=== PATIENT | female | born 1955 | race Caucasian/White ===

== ENCOUNTER 2020-11-19 11:48 | Inpatient (IN) | payer BC, SELFPAY ==
[~2020-11-19] VITALS: Ht 167.6 cm; Wt 80.7 kg
[2020-11-19 11:50] VITALS: BP_SYST 135
[2020-11-19 12:54] LABS: BASOPHILS # (AUTO) 0.3 K/uL (0.0-0.2); BASOPHILS % (AUTO) 3.7 % (0.0-2.0); EOSINOPHILS % (AUTO) 0.6 % (0.0-4.0); HEMATOCRIT 40.8 % (36-48); HEMOGLOBIN 14.4 g/dL (12.0-16.0); LYMPHOCYTES # (AUTO) 0.9 K/uL (1.0-5.5); LYMPHOCYTES % (AUTO) 11.6 % (20.5-51.5); MEAN CORPUSCULAR HEMOGLOBIN 30 pg (27-31); MEAN CORPUSCULAR HGB CONC 35 % (32-36); MEAN CORPUSCULAR VOLUME 85 fL (79.0-98.0); MONOCYTES # (AUTO) 0.4 K/uL (0.0-1.0); MONOCYTES % (AUTO) 5.3 % (1.7-9.3); NEUTROPHILS # (AUTO) 5.9 K/uL (1.8-7.7); NEUTROPHILS % (AUTO) 78.8 % (40.0-70.0); PLATELET COUNT (AUTO) 202 K/uL (130-430); RED CELL DISTRIBUTION WIDTH 13.5 % (9.0-15.0); WHITE BLOOD COUNT (AUTO) 7.5 K/uL (4.8-10.8)
[2020-11-19] MEDS ORDERED: DEXAMETHASONE SOD PHOSPHATE 10 MG/ML VIAL IVP ONE (13:00)
[2020-11-19] MEDS ORDERED: NACL 0.9% 1,000 ML IV ONE (13:00)
[2020-11-19] MEDS ORDERED: cefTRIAXone 1 GM IVPB PREMIX 50 ML IV ONE (13:00)
[2020-11-19 13:08] LABS: CALCIUM 9.2 mg/dL (8.4-11.0); CREATININE 0.99 mg/dL (0.55-1.30)
[2020-11-19 13:14] LABS: INR 0.9 (0.8-1.2); PROTHROMBIN TIME 9.2 SECS (9.5-12.5)
[2020-11-19 13:23] LABS: ALBUMIN 2.8 g/dL (3.4-4.8); TOTAL BILIRUBIN 0.7 mg/dL (0.0-1.0)
[2020-11-19 13:25] LABS: POTASSIUM 2.6 mmol/L (3.5-5.1)
[2020-11-19] MEDS ORDERED: KCL 40 mEq in D5W 1000 mL 1,000 ML IV ONE (14:15)
[2020-11-19] MEDS ORDERED: POTASSIUM CHLORIDE 20 MEQ/PKT PACKET PO ONE (14:15)
[2020-11-19] MEDS: KCL 20 mEq in NS 1000 mL 1,000 ML IV SCH (14:30)
[2020-11-19] MEDS ORDERED: HCT25 PO (14:34)
[2020-11-19] MEDS ORDERED: LEVO150T PO (14:34)
[2020-11-19] MEDS ORDERED: ACETAMINOPHEN 325 MG TABLET PO PRN (19:00)
[2020-11-19] MEDS: DEXAMETHASONE SOD PHOSPHATE 10 MG/ML VIAL IVP SCH (20:00)
[2020-11-19] MEDS: cefTRIAXone 1 GM in D5W 50 ML IV SCH (20:19)
[2020-11-19] MEDS: AZITHROMYCIN 500 MG in NS 250 ML IV SCH (20:22)
[2020-11-19] MEDS: ASCORBIC ACID 500 MG TABLET PO SCH (20:22)
[2020-11-19] MEDS: ENOXAPARIN SODIUM 40 MG/0.4 ML SYRINGE SUBCUT SCH (20:23)
[2020-11-19] MEDS ORDERED: ONDANSETRON HCL 4 MG/2 ML VIAL ONE (21:32)
[2020-11-19] MEDS: ONDANSETRON HCL 4 MG/2 ML VIAL IVP PRN (22:02)
[2020-11-19] MEDS: LORazepam 1 MG TABLET PO PRN (22:04)
[2020-11-20] MEDS: KCL 20 mEq in NS 1000 mL 1,000 ML IV SCH ×2 (00:47→17:51)
[2020-11-20] MEDS ORDERED: ENOXAPARIN SODIUM 40 MG/0.4 ML SYRINGE ONE (10:00)
[2020-11-20] MEDS: LEVOTHYROXINE SODIUM 0.1 MG TABLET PO SCH (11:01)
[2020-11-20] MEDS: ASCORBIC ACID 500 MG TABLET PO SCH ×2 (11:01→21:12)
[2020-11-20] MEDS: CHOLECALCIFEROL (VITAMIN D3) 5,000 UNIT TABLET PO SCH (11:02)
[2020-11-20] MEDS: ENOXAPARIN SODIUM 40 MG/0.4 ML SYRINGE SUBCUT SCH ×2 (11:05→21:14)
[2020-11-20 14:59] LABS: BASOPHILS % (AUTO) 0.2 % (0.0-2.0); EOSINOPHILS # (AUTO) 0.1 K/uL (0.0-0.4); EOSINOPHILS % (AUTO) 0.5 % (0.0-4.0); HEMATOCRIT 38.6 % (36-48); HEMOGLOBIN 13.5 g/dL (12.0-16.0); LYMPHOCYTES # (AUTO) 1.3 K/uL (1.0-5.5); LYMPHOCYTES % (AUTO) 12.6 % (20.5-51.5); MEAN CORPUSCULAR HEMOGLOBIN 30 pg (27-31); MEAN CORPUSCULAR HGB CONC 35 % (32-36); MEAN CORPUSCULAR VOLUME 86 fL (79.0-98.0); MONOCYTES # (AUTO) 0.4 K/uL (0.0-1.0); MONOCYTES % (AUTO) 4.1 % (1.7-9.3); NEUTROPHILS # (AUTO) 8.6 K/uL (1.8-7.7); NEUTROPHILS % (AUTO) 82.6 % (40.0-70.0); PLATELET COUNT (AUTO) 243 K/uL (130-430); RED BLOOD CELL COUNT(AUTO) 4.52 MIL/uL (4.2-6.2); RED CELL DISTRIBUTION WIDTH 13.6 % (9.0-15.0); WHITE BLOOD COUNT (AUTO) 10.5 K/uL (4.8-10.8)
[2020-11-20 15:33] LABS: ALBUMIN 2.5 g/dL (3.4-4.8); CALCIUM 9.2 mg/dL (8.4-11.0); CREATININE 0.74 mg/dL (0.55-1.30); POTASSIUM 3.7 mmol/L (3.5-5.1); TOTAL BILIRUBIN 0.6 mg/dL (0.0-1.0)
[2020-11-20 16:10] VITALS: BP_SYST 145
[2020-11-20 16:20] VITALS: BP_SYST 145
[2020-11-20 20:00] VITALS: BP_SYST 159
[2020-11-20] MEDS: cefTRIAXone 1 GM in D5W 50 ML IV SCH (21:00)
[2020-11-20] MEDS: DEXAMETHASONE SOD PHOSPHATE 10 MG/ML VIAL IVP SCH (21:12)
[2020-11-20] MEDS: AZITHROMYCIN 500 MG in NS 250 ML IV SCH (21:13)
[2020-11-20 21:16] VITALS: BP_SYST 145
[2020-11-21 02:00] VITALS: BP_SYST 146
[2020-11-21] MEDS: LORazepam 1 MG TABLET PO PRN (02:36)
[2020-11-21] MEDS: LEVOTHYROXINE SODIUM 0.1 MG TABLET PO SCH (08:09)
[2020-11-21 08:15] VITALS: BP_SYST 143
[2020-11-21 08:45] LABS: BASOPHILS % (AUTO) 0.1 % (0.0-2.0); HEMATOCRIT 37.8 % (36-48); HEMOGLOBIN 13.3 g/dL (12.0-16.0); LYMPHOCYTES # (AUTO) 0.8 K/uL (1.0-5.5); LYMPHOCYTES % (AUTO) 8.6 % (20.5-51.5); MEAN CORPUSCULAR HEMOGLOBIN 30 pg (27-31); MEAN CORPUSCULAR HGB CONC 35 % (32-36); MEAN CORPUSCULAR VOLUME 86 fL (79.0-98.0); MONOCYTES # (AUTO) 0.2 K/uL (0.0-1.0); MONOCYTES % (AUTO) 2.4 % (1.7-9.3); NEUTROPHILS # (AUTO) 8.3 K/uL (1.8-7.7); NEUTROPHILS % (AUTO) 88.9 % (40.0-70.0); PLATELET COUNT (AUTO) 288 K/uL (130-430); RED BLOOD CELL COUNT(AUTO) 4.42 MIL/uL (4.2-6.2); RED CELL DISTRIBUTION WIDTH 13.1 % (9.0-15.0); WHITE BLOOD COUNT (AUTO) 9.3 K/uL (4.8-10.8)
[2020-11-21] MEDS ORDERED: BUDESONIDE 0.5 MG/2 ML AMPUL.NEB INH SCH (09:00)
[2020-11-21 09:08] LABS: ALBUMIN 2.4 g/dL (3.4-4.8); CREATININE 0.81 mg/dL (0.55-1.30); TOTAL BILIRUBIN 0.5 mg/dL (0.0-1.0)
[2020-11-21 10:36] LABS: C-REACTIVE PROTEIN QUANT 18.1 mg/dL (0-0.5)
[2020-11-21] MEDS: ENOXAPARIN SODIUM 40 MG/0.4 ML SYRINGE SUBCUT SCH ×2 (11:00→21:00)
[2020-11-21] MEDS: ASCORBIC ACID 500 MG TABLET PO SCH ×2 (11:00→21:00)
[2020-11-21] MEDS: CHOLECALCIFEROL (VITAMIN D3) 5,000 UNIT TABLET PO SCH (11:00)
[2020-11-21 16:28] VITALS: BP_SYST 152
[2020-11-21] MEDS: KCL 20 mEq in NS 1000 mL 1,000 ML IV SCH (17:23)
[2020-11-21 20:00] VITALS: BP_SYST 146
[2020-11-21] MEDS: DEXAMETHASONE SOD PHOSPHATE 10 MG/ML VIAL IVP SCH (20:30)
[2020-11-21] MEDS: cefTRIAXone 1 GM in D5W 50 ML IV SCH (20:30)
[2020-11-21] MEDS: AZITHROMYCIN 500 MG in NS 250 ML IV SCH (21:00)
[2020-11-22 00:21] VITALS: BP_SYST 141
[2020-11-22] MEDS: LEVOTHYROXINE SODIUM 0.1 MG TABLET PO SCH (06:05)
[2020-11-22 08:00] VITALS: BP_SYST 152
[2020-11-22 09:05] LABS: BASOPHILS % (AUTO) 0.1 % (0.0-2.0); HEMATOCRIT 38.7 % (36-48); HEMOGLOBIN 13.5 g/dL (12.0-16.0); LYMPHOCYTES # (AUTO) 0.8 K/uL (1.0-5.5); LYMPHOCYTES % (AUTO) 6.6 % (20.5-51.5); MEAN CORPUSCULAR HEMOGLOBIN 30 pg (27-31); MEAN CORPUSCULAR HGB CONC 35 % (32-36); MEAN CORPUSCULAR VOLUME 86 fL (79.0-98.0); MONOCYTES # (AUTO) 0.3 K/uL (0.0-1.0); MONOCYTES % (AUTO) 2.7 % (1.7-9.3); NEUTROPHILS # (AUTO) 11.3 K/uL (1.8-7.7); NEUTROPHILS % (AUTO) 90.6 % (40.0-70.0); PLATELET COUNT (AUTO) 326 K/uL (130-430); RED CELL DISTRIBUTION WIDTH 13.7 % (9.0-15.0); WHITE BLOOD COUNT (AUTO) 12.5 K/uL (4.8-10.8)
[2020-11-22] MEDS: CHOLECALCIFEROL (VITAMIN D3) 5,000 UNIT TABLET PO SCH (09:11)
[2020-11-22] MEDS: ASCORBIC ACID 500 MG TABLET PO SCH ×2 (09:11→21:00)
[2020-11-22] MEDS: ENOXAPARIN SODIUM 40 MG/0.4 ML SYRINGE SUBCUT SCH ×2 (09:14→22:15)
[2020-11-22 09:44] LABS: ALBUMIN 2.3 g/dL (3.4-4.8); CALCIUM 9.1 mg/dL (8.4-11.0); CREATININE 0.76 mg/dL (0.55-1.30); TOTAL BILIRUBIN 0.5 mg/dL (0.0-1.0)
[2020-11-22 10:12] LABS: C-REACTIVE PROTEIN QUANT 17.8 mg/dL (0-0.5)
[2020-11-22 11:18] VITALS: BP_SYST 145
[2020-11-22] MEDS: KCL 20 mEq in NS 1000 mL 1,000 ML IV SCH (11:27)
[2020-11-22] MEDS: ALBUTEROL MDI INHALATION 8 GM INH INH PRN (13:40)
[2020-11-22 15:37] VITALS: BP_SYST 142
[2020-11-22] MEDS: LORazepam 1 MG TABLET PO PRN (17:36)
[2020-11-22 20:00] VITALS: BP_SYST 140
[2020-11-22] MEDS: AZITHROMYCIN 500 MG in NS 250 ML IV SCH (21:00)
[2020-11-22] MEDS: DEXAMETHASONE SOD PHOSPHATE 10 MG/ML VIAL IVP SCH (21:00)
[2020-11-22] MEDS: cefTRIAXone 1 GM in D5W 50 ML IV SCH (23:00)
[2020-11-23] VITALS: BP_SYST 142
[2020-11-23] MEDS: LEVOTHYROXINE SODIUM 0.1 MG TABLET PO SCH (06:52)
[2020-11-23 08:00] VITALS: BP_SYST 147
[2020-11-23] MEDS: CHOLECALCIFEROL (VITAMIN D3) 5,000 UNIT TABLET PO SCH (09:41)
[2020-11-23] MEDS: ASCORBIC ACID 500 MG TABLET PO SCH ×2 (09:41→21:30)
[2020-11-23] MEDS: ENOXAPARIN SODIUM 40 MG/0.4 ML SYRINGE SUBCUT SCH ×2 (09:41→21:30)
[2020-11-23 11:33] LABS: BASOPHILS % (AUTO) 0.2 % (0.0-2.0); HEMATOCRIT 39.7 % (36-48); HEMOGLOBIN 13.6 g/dL (12.0-16.0); LYMPHOCYTES # (AUTO) 0.7 K/uL (1.0-5.5); LYMPHOCYTES % (AUTO) 5.5 % (20.5-51.5); MEAN CORPUSCULAR HEMOGLOBIN 30 pg (27-31); MEAN CORPUSCULAR HGB CONC 34 % (32-36); MEAN CORPUSCULAR VOLUME 86 fL (79.0-98.0); MONOCYTES # (AUTO) 0.2 K/uL (0.0-1.0); MONOCYTES % (AUTO) 1.5 % (1.7-9.3); NEUTROPHILS # (AUTO) 12.5 K/uL (1.8-7.7); NEUTROPHILS % (AUTO) 92.8 % (40.0-70.0); PLATELET COUNT (AUTO) 362 K/uL (130-430); RED BLOOD CELL COUNT(AUTO) 4.61 MIL/uL (4.2-6.2); RED CELL DISTRIBUTION WIDTH 13.6 % (9.0-15.0); WHITE BLOOD COUNT (AUTO) 13.4 K/uL (4.8-10.8)
[2020-11-23 11:48] LABS: ALBUMIN 2.2 g/dL (3.4-4.8); CALCIUM 8.9 mg/dL (8.4-11.0); CREATININE 0.98 mg/dL (0.55-1.30); POTASSIUM 4.2 mmol/L (3.5-5.1); TOTAL BILIRUBIN 0.6 mg/dL (0.0-1.0)
[2020-11-23] MEDS: AZITHROMYCIN 500 MG in D5W 250 ML IV SCH (12:19)
[2020-11-23 15:23] VITALS: BP_SYST 146
[2020-11-23] MEDS: KCL 20 mEq in NS 1000 mL 1,000 ML IV SCH (17:39)
[2020-11-23 17:45] VITALS: BP_SYST 155
[2020-11-23 20:00] VITALS: BP_SYST 124
[2020-11-23] MEDS: LORazepam 1 MG TABLET PO PRN (20:45)
[2020-11-23] MEDS: cefTRIAXone 1 GM in D5W 50 ML IV SCH (21:30)
[2020-11-23] MEDS: DEXAMETHASONE SOD PHOSPHATE 10 MG/ML VIAL IVP SCH (21:30)
[2020-11-24] VITALS: BP_SYST 115
[2020-11-24] MEDS: ONDANSETRON HCL 4 MG/2 ML VIAL IVP PRN
[2020-11-24] MEDS: LEVOTHYROXINE SODIUM 0.1 MG TABLET PO SCH (06:30)
[2020-11-24 07:34] LABS: BASOPHILS # (AUTO) 0.1 K/uL (0.0-0.2); BASOPHILS % (AUTO) 0.3 % (0.0-2.0); HEMATOCRIT 37.4 % (36-48); HEMOGLOBIN 12.9 g/dL (12.0-16.0); LYMPHOCYTES # (AUTO) 0.6 K/uL (1.0-5.5); LYMPHOCYTES % (AUTO) 3.5 % (20.5-51.5); MEAN CORPUSCULAR HEMOGLOBIN 30 pg (27-31); MEAN CORPUSCULAR HGB CONC 35 % (32-36); MEAN CORPUSCULAR VOLUME 86 fL (79.0-98.0); MONOCYTES # (AUTO) 0.3 K/uL (0.0-1.0); MONOCYTES % (AUTO) 2.1 % (1.7-9.3); NEUTROPHILS # (AUTO) 15.3 K/uL (1.8-7.7); NEUTROPHILS % (AUTO) 94.1 % (40.0-70.0); PLATELET COUNT (AUTO) 339 K/uL (130-430); RED BLOOD CELL COUNT(AUTO) 4.35 MIL/uL (4.2-6.2); RED CELL DISTRIBUTION WIDTH 14.1 % (9.0-15.0); WHITE BLOOD COUNT (AUTO) 16.3 K/uL (4.8-10.8)
[2020-11-24 07:52] LABS: BILIRUBIN,DIRECT 0.2 mg/dL (0.0-0.3); CALCIUM 8.7 mg/dL (8.4-11.0); CREATININE 0.86 mg/dL (0.55-1.30); POTASSIUM 4.3 mmol/L (3.5-5.1); TOTAL BILIRUBIN 0.4 mg/dL (0.0-1.0)
[2020-11-24] MEDS: ASCORBIC ACID 500 MG TABLET PO SCH ×2 (09:35→21:50)
[2020-11-24] MEDS: CHOLECALCIFEROL (VITAMIN D3) 5,000 UNIT TABLET PO SCH (09:35)
[2020-11-24] MEDS: ENOXAPARIN SODIUM 40 MG/0.4 ML SYRINGE SUBCUT SCH ×2 (09:36→21:00)
[2020-11-24 11:11] VITALS: BP_SYST 131
[2020-11-24] MEDS: AZITHROMYCIN 500 MG in D5W 250 ML IV SCH (12:02)
[2020-11-24 12:52] VITALS: BP_SYST 131
[2020-11-24 16:16] VITALS: BP_SYST 129
[2020-11-24] MEDS: LORazepam 1 MG TABLET PO PRN (19:08)
[2020-11-24 20:00] VITALS: BP_SYST 132
[2020-11-24] MEDS: KCL 20 mEq in NS 1000 mL 1,000 ML IV SCH (20:00)
[2020-11-24] MEDS: DEXAMETHASONE SOD PHOSPHATE 10 MG/ML VIAL IVP SCH (21:50)
[2020-11-24] MEDS ORDERED: cefTRIAXone 1 GM IVPB PREMIX 50 ML IV ONE (22:27)
[2020-11-24] MEDS: cefTRIAXone 1 GM in D5W 50 ML IV SCH (22:45)
[2020-11-25] VITALS (8 sets, daily range): BP systolic 86–140
[2020-11-25] MEDS: LEVOTHYROXINE SODIUM 0.1 MG TABLET PO SCH (06:03)
[2020-11-25 08:06] LABS: BILIRUBIN,DIRECT 0.2 mg/dL (0.0-0.3); TOTAL BILIRUBIN 0.3 mg/dL (0.0-1.0)
[2020-11-25] MEDS: ENOXAPARIN SODIUM 40 MG/0.4 ML SYRINGE SUBCUT SCH ×2 (09:00→22:10)
[2020-11-25] MEDS: ASCORBIC ACID 500 MG TABLET PO SCH ×2 (09:00→22:10)
[2020-11-25] MEDS: CHOLECALCIFEROL (VITAMIN D3) 5,000 UNIT TABLET PO SCH (09:00)
[2020-11-25 10:24] LABS: C-REACTIVE PROTEIN QUANT 19.2 mg/dL (0-0.5)
[2020-11-25] MEDS ORDERED: PROPOFOL DRIP 100 ML IV ONE (18:14)
[2020-11-25] MEDS ORDERED: NOREPINEPHRINE BITARTRATE 4 MG in NS 246 ML IV PRN (20:30)
[2020-11-25] MEDS ORDERED: LEVOTHYROXINE SODIUM 0.1 MG TABLET ONE (21:30)
[2020-11-25] MEDS: cefTRIAXone 1 GM in D5W 50 ML IV SCH (22:10)
[2020-11-25] MEDS: DEXAMETHASONE SOD PHOSPHATE 10 MG/ML VIAL IVP SCH (22:10)
[2020-11-25] MEDS: KCL 20 mEq in NS 1000 mL 1,000 ML IV SCH (22:10)
[2020-11-26] VITALS (23 sets, daily range): BP systolic 83–131
[2020-11-26] MEDS ORDERED: LORazepam 2 MG/ML VIAL ONE (00:57)
[2020-11-26] MEDS: LORazepam 2 MG/ML VIAL IVP PRN (01:17)
[2020-11-26] MEDS: PROPOFOL DRIP 100 ML IV PRN ×6 (01:18→18:13)
[2020-11-26 05:23] LABS: BASOPHILS % (AUTO) 0.2 % (0.0-2.0); EOSINOPHILS % (AUTO) 0.1 % (0.0-4.0); HEMATOCRIT 34.7 % (36-48); HEMOGLOBIN 11.7 g/dL (12.0-16.0); LYMPHOCYTES # (AUTO) 0.7 K/uL (1.0-5.5); LYMPHOCYTES % (AUTO) 5.6 % (20.5-51.5); MEAN CORPUSCULAR HEMOGLOBIN 30 pg (27-31); MEAN CORPUSCULAR HGB CONC 34 % (32-36); MEAN CORPUSCULAR VOLUME 87 fL (79.0-98.0); MONOCYTES # (AUTO) 0.3 K/uL (0.0-1.0); NEUTROPHILS # (AUTO) 11.5 K/uL (1.8-7.7); NEUTROPHILS % (AUTO) 92.1 % (40.0-70.0); PLATELET COUNT (AUTO) 219 K/uL (130-430); RED BLOOD CELL COUNT(AUTO) 3.98 MIL/uL (4.2-6.2); RED CELL DISTRIBUTION WIDTH 14.3 % (9.0-15.0); WHITE BLOOD COUNT (AUTO) 12.5 K/uL (4.8-10.8)
[2020-11-26 05:38] LABS: CALCIUM 8.6 mg/dL (8.4-11.0); CREATININE 0.96 mg/dL (0.55-1.30); POTASSIUM 4.7 mmol/L (3.5-5.1)
[2020-11-26] MEDS: LEVOTHYROXINE SODIUM 0.1 MG TABLET PO SCH (05:47)
[2020-11-26 05:54] LABS: C-REACTIVE PROTEIN QUANT 20.7 mg/dL (0-0.5)
[2020-11-26] MEDS: ASCORBIC ACID 500 MG TABLET PO SCH ×2 (09:26→23:03)
[2020-11-26] MEDS: CHOLECALCIFEROL (VITAMIN D3) 5,000 UNIT TABLET PO SCH (09:26)
[2020-11-26] MEDS: ENOXAPARIN SODIUM 40 MG/0.4 ML SYRINGE SUBCUT SCH ×2 (09:27→21:00)
[2020-11-26] MEDS: PIPERACILLIN/TAZO 4.5GM/DEX-IS 100 ML IV SCH ×2 (13:09→23:05)
[2020-11-26] MEDS ORDERED: PIPERACILLIN/TAZO 4.5GM/DEX-IS 100 ML IV SCH (14:00)
[2020-11-26] MEDS: KCL 20 mEq in NS 1000 mL 1,000 ML IV SCH (17:54)
[2020-11-26 22:20] LABS: INR 1.1 (0.8-1.2); PROTHROMBIN TIME 10.9 SECS (9.5-12.5)
[2020-11-26] MEDS: DEXAMETHASONE SOD PHOSPHATE 10 MG/ML VIAL IVP SCH (23:03)
[2020-11-27] VITALS (27 sets, daily range): BP systolic 87–136
[2020-11-27] MEDS: PROPOFOL DRIP 100 ML IV PRN ×5 (02:56→20:30)
[2020-11-27] MEDS: LORazepam 2 MG/ML VIAL IVP PRN (06:00)
[2020-11-27] MEDS: PIPERACILLIN/TAZO 4.5GM/DEX-IS 100 ML IV SCH ×3 (06:00→21:00)
[2020-11-27 07:12] LABS: BASOPHILS # (AUTO) 0.1 K/uL (0.0-0.2); BASOPHILS % (AUTO) 0.6 % (0.0-2.0); EOSINOPHILS % (AUTO) 0.1 % (0.0-4.0); HEMATOCRIT 38.7 % (36-48); LYMPHOCYTES # (AUTO) 0.9 K/uL (1.0-5.5); MEAN CORPUSCULAR HEMOGLOBIN 30 pg (27-31); MEAN CORPUSCULAR HGB CONC 34 % (32-36); MEAN CORPUSCULAR VOLUME 88 fL (79.0-98.0); MONOCYTES # (AUTO) 0.3 K/uL (0.0-1.0); MONOCYTES % (AUTO) 1.5 % (1.7-9.3); NEUTROPHILS # (AUTO) 17.4 K/uL (1.8-7.7); NEUTROPHILS % (AUTO) 92.8 % (40.0-70.0); PLATELET COUNT (AUTO) 269 K/uL (130-430); RED CELL DISTRIBUTION WIDTH 14.3 % (9.0-15.0); WHITE BLOOD COUNT (AUTO) 18.8 K/uL (4.8-10.8)
[2020-11-27 07:20] LABS: CALCIUM 8.9 mg/dL (8.4-11.0); CREATININE 0.98 mg/dL (0.55-1.30); POTASSIUM 4.5 mmol/L (3.5-5.1)
[2020-11-27 07:29] LABS: ALBUMIN 1.7 g/dL (3.4-4.8); BILIRUBIN,DIRECT 0.4 mg/dL (0.0-0.3); TOTAL BILIRUBIN 0.5 mg/dL (0.0-1.0)
[2020-11-27] MEDS: LEVOTHYROXINE SODIUM 0.1 MG TABLET PO SCH (07:46)
[2020-11-27] MEDS: ASCORBIC ACID 500 MG TABLET PO SCH ×2 (08:45→21:00)
[2020-11-27] MEDS: CHOLECALCIFEROL (VITAMIN D3) 5,000 UNIT TABLET PO SCH (08:45)
[2020-11-27] MEDS: ENOXAPARIN SODIUM 40 MG/0.4 ML SYRINGE SUBCUT SCH ×2 (08:46→21:57)
[2020-11-27 10:33] LABS: C-REACTIVE PROTEIN QUANT 20.9 mg/dL (0-0.5)
[2020-11-27] MEDS: KCL 20 mEq in NS 1000 mL 1,000 ML IV SCH (18:05)
[2020-11-27] MEDS ORDERED: VANCOMYCIN HCL 1 GM/NS PREMIX 250 ML IV ONE (20:15)
[2020-11-27] MEDS: DEXAMETHASONE SOD PHOSPHATE 10 MG/ML VIAL IVP SCH (20:59)
[2020-11-27] MEDS: FLUCONAZOLE 100 mg/ NS 50 ML IV SCH (21:00)
[2020-11-27] MEDS ORDERED: VANCOMYCIN HCL 1000 MG/VIAL IV ONE (22:53)
[2020-11-27] MEDS ORDERED: FLUCONAZOLE 200 mg/ NS 100 ML IV ONE (22:57)
[2020-11-28] VITALS (27 sets, daily range): BP systolic 100–128
[2020-11-28] MEDS: PROPOFOL DRIP 100 ML IV PRN ×4 (01:04→22:00)
[2020-11-28] MEDS: PIPERACILLIN/TAZO 4.5GM/DEX-IS 100 ML IV SCH ×3 (05:43→22:00)
[2020-11-28 05:47] LABS: BASOPHILS # (AUTO) 0.1 K/uL (0.0-0.2); BASOPHILS % (AUTO) 0.4 % (0.0-2.0); EOSINOPHILS % (AUTO) 0.1 % (0.0-4.0); HEMATOCRIT 36.4 % (36-48); HEMOGLOBIN 12.3 g/dL (12.0-16.0); LYMPHOCYTES # (AUTO) 0.8 K/uL (1.0-5.5); LYMPHOCYTES % (AUTO) 5.2 % (20.5-51.5); MEAN CORPUSCULAR HEMOGLOBIN 30 pg (27-31); MEAN CORPUSCULAR HGB CONC 34 % (32-36); MEAN CORPUSCULAR VOLUME 88 fL (79.0-98.0); MONOCYTES # (AUTO) 0.4 K/uL (0.0-1.0); MONOCYTES % (AUTO) 2.5 % (1.7-9.3); NEUTROPHILS # (AUTO) 14.3 K/uL (1.8-7.7); NEUTROPHILS % (AUTO) 91.8 % (40.0-70.0); PLATELET COUNT (AUTO) 215 K/uL (130-430); RED BLOOD CELL COUNT(AUTO) 4.14 MIL/uL (4.2-6.2); RED CELL DISTRIBUTION WIDTH 13.9 % (9.0-15.0); WHITE BLOOD COUNT (AUTO) 15.6 K/uL (4.8-10.8)
[2020-11-28] MEDS: LEVOTHYROXINE SODIUM 0.1 MG TABLET PO SCH (07:18)
[2020-11-28 07:38] LABS: ALBUMIN 1.5 g/dL (3.4-4.8); BILIRUBIN,DIRECT 0.2 mg/dL (0.0-0.3); CALCIUM 8.5 mg/dL (8.4-11.0); CREATININE 1.01 mg/dL (0.55-1.30); THYROID STIMULATING HORMONE 4.22 uIu/mL (0.36-3.74); TOTAL BILIRUBIN 0.5 mg/dL (0.0-1.0)
[2020-11-28 08:35] LABS: C-REACTIVE PROTEIN QUANT 6.9 mg/dL (0-0.5)
[2020-11-28] MEDS: ASCORBIC ACID 500 MG TABLET PO SCH ×2 (08:59→20:48)
[2020-11-28] MEDS: CHOLECALCIFEROL (VITAMIN D3) 5,000 UNIT TABLET PO SCH (08:59)
[2020-11-28] MEDS: ENOXAPARIN SODIUM 40 MG/0.4 ML SYRINGE SUBCUT SCH ×2 (10:23→21:35)
[2020-11-28] MEDS: KCL 20 mEq in NS 1000 mL 1,000 ML IV SCH (17:13)
[2020-11-28] MEDS: FLUCONAZOLE 100 mg/ NS 50 ML IV SCH (20:48)
[2020-11-28] MEDS: DEXAMETHASONE SOD PHOSPHATE 10 MG/ML VIAL IVP SCH (20:48)
[2020-11-29] VITALS (28 sets, daily range): BP systolic 105–136
[2020-11-29] MEDS: PROPOFOL DRIP 100 ML IV PRN ×3 (02:15→22:04)
[2020-11-29] MEDS: PIPERACILLIN/TAZO 4.5GM/DEX-IS 100 ML IV SCH ×3 (05:19→21:57)
[2020-11-29] MEDS: LEVOTHYROXINE SODIUM 0.1 MG TABLET PO SCH (07:00)
[2020-11-29] MEDS: ENOXAPARIN SODIUM 40 MG/0.4 ML SYRINGE SUBCUT SCH ×2 (09:00→22:03)
[2020-11-29 10:08] LABS: ALBUMIN 1.6 g/dL (3.4-4.8); BILIRUBIN,DIRECT 0.2 mg/dL (0.0-0.3); CALCIUM 8.9 mg/dL (8.4-11.0); CREATININE 0.91 mg/dL (0.55-1.30); POTASSIUM 4.4 mmol/L (3.5-5.1); TOTAL BILIRUBIN 0.5 mg/dL (0.0-1.0)
[2020-11-29] MEDS: CHOLECALCIFEROL (VITAMIN D3) 5,000 UNIT TABLET PO SCH (10:11)
[2020-11-29] MEDS: ASCORBIC ACID 500 MG TABLET PO SCH ×2 (10:11→21:17)
[2020-11-29 10:31] LABS: BASOPHILS % (AUTO) 0.3 % (0.0-2.0); EOSINOPHILS # (AUTO) 0.3 K/uL (0.0-0.4); HEMATOCRIT 36.1 % (36-48); HEMOGLOBIN 12.6 g/dL (12.0-16.0); LYMPHOCYTES # (AUTO) 0.5 K/uL (1.0-5.5); LYMPHOCYTES % (AUTO) 3.8 % (20.5-51.5); MEAN CORPUSCULAR HEMOGLOBIN 31 pg (27-31); MEAN CORPUSCULAR HGB CONC 35 % (32-36); MEAN CORPUSCULAR VOLUME 88 fL (79.0-98.0); MONOCYTES # (AUTO) 0.2 K/uL (0.0-1.0); MONOCYTES % (AUTO) 1.1 % (1.7-9.3); NEUTROPHILS # (AUTO) 13.1 K/uL (1.8-7.7); NEUTROPHILS % (AUTO) 92.8 % (40.0-70.0); PLATELET COUNT (AUTO) 194 K/uL (130-430); RED BLOOD CELL COUNT(AUTO) 4.08 MIL/uL (4.2-6.2); RED CELL DISTRIBUTION WIDTH 13.9 % (9.0-15.0); WHITE BLOOD COUNT (AUTO) 14.1 K/uL (4.8-10.8)
[2020-11-29 10:48] LABS: C-REACTIVE PROTEIN QUANT 2.7 mg/dL (0-0.5)
[2020-11-29] MEDS: KCL 20 mEq in NS 1000 mL 1,000 ML IV SCH (18:01)
[2020-11-29] MEDS: DEXAMETHASONE SOD PHOSPHATE 10 MG/ML VIAL IVP SCH (20:00)
[2020-11-29] MEDS: FLUCONAZOLE 100 mg/ NS 50 ML IV SCH (21:17)
[2020-11-30] VITALS (29 sets, daily range): BP systolic 86–154
[2020-11-30] MEDS: PROPOFOL DRIP 100 ML IV PRN ×5 (02:37→23:32)
[2020-11-30] MEDS: LEVOTHYROXINE SODIUM 0.1 MG TABLET PO SCH (06:49)
[2020-11-30] MEDS: PIPERACILLIN/TAZO 4.5GM/DEX-IS 100 ML IV SCH ×3 (06:49→22:39)
[2020-11-30 08:50] LABS: POTASSIUM 4.5 mmol/L (3.5-5.1)
[2020-11-30 08:51] LABS: ALBUMIN 1.7 g/dL (3.4-4.8); BILIRUBIN,DIRECT 0.1 mg/dL (0.0-0.3); CALCIUM 8.9 mg/dL (8.4-11.0); CREATININE 0.77 mg/dL (0.55-1.30); TOTAL BILIRUBIN 0.5 mg/dL (0.0-1.0)
[2020-11-30] MEDS: ASCORBIC ACID 500 MG TABLET PO SCH ×2 (10:10→20:03)
[2020-11-30] MEDS: CHOLECALCIFEROL (VITAMIN D3) 5,000 UNIT TABLET PO SCH (10:10)
[2020-11-30] MEDS: ENOXAPARIN SODIUM 40 MG/0.4 ML SYRINGE SUBCUT SCH ×2 (11:30→20:03)
[2020-11-30] MEDS: KCL 20 mEq in NS 1000 mL 1,000 ML IV SCH (18:13)
[2020-11-30] MEDS: FLUCONAZOLE 100 mg/ NS 50 ML IV SCH (20:03)
[2020-11-30] MEDS: DEXAMETHASONE SOD PHOSPHATE 10 MG/ML VIAL IVP SCH (20:03)
[2020-12-01] VITALS (29 sets, daily range): BP systolic 88–143
[2020-12-01] MEDS: PROPOFOL DRIP 100 ML IV PRN ×2 (05:16→21:46)
[2020-12-01] MEDS: PIPERACILLIN/TAZO 4.5GM/DEX-IS 100 ML IV SCH ×3 (05:35→22:00)
[2020-12-01] MEDS: LEVOTHYROXINE SODIUM 0.1 MG TABLET PO SCH (07:09)
[2020-12-01 07:46] LABS: ALBUMIN 1.6 g/dL (3.4-4.8); BILIRUBIN,DIRECT 0.1 mg/dL (0.0-0.3)
[2020-12-01] MEDS: ASCORBIC ACID 500 MG TABLET PO SCH ×2 (08:01→21:47)
[2020-12-01] MEDS: CHOLECALCIFEROL (VITAMIN D3) 5,000 UNIT TABLET PO SCH (08:01)
[2020-12-01] MEDS: ENOXAPARIN SODIUM 40 MG/0.4 ML SYRINGE SUBCUT SCH ×2 (08:46→21:46)
[2020-12-01] MEDS: LORazepam 2 MG/ML VIAL IVP PRN ×2 (12:57→16:32)
[2020-12-01] MEDS: KCL 20 mEq in NS 1000 mL 1,000 ML IV SCH (18:29)
[2020-12-01] MEDS: DEXAMETHASONE SOD PHOSPHATE 10 MG/ML VIAL IVP SCH (20:00)
[2020-12-01] MEDS: FLUCONAZOLE 100 mg/ NS 50 ML IV SCH (21:47)
[2020-12-02] VITALS (33 sets, daily range): BP systolic 91–144
[2020-12-02] MEDS: PROPOFOL DRIP 100 ML IV PRN ×5 (04:53→22:22)
[2020-12-02] MEDS: PIPERACILLIN/TAZO 4.5GM/DEX-IS 100 ML IV SCH ×3 (05:50→22:14)
[2020-12-02] MEDS: LEVOTHYROXINE SODIUM 0.1 MG TABLET PO SCH (06:41)
[2020-12-02 06:48] LABS: BASOPHILS # (AUTO) 0.1 K/uL (0.0-0.2); BASOPHILS % (AUTO) 0.4 % (0.0-2.0); EOSINOPHILS # (AUTO) 0.2 K/uL (0.0-0.4); EOSINOPHILS % (AUTO) 0.9 % (0.0-4.0); HEMATOCRIT 35.1 % (36-48); HEMOGLOBIN 11.8 g/dL (12.0-16.0); LYMPHOCYTES # (AUTO) 0.8 K/uL (1.0-5.5); MEAN CORPUSCULAR HEMOGLOBIN 30 pg (27-31); MEAN CORPUSCULAR HGB CONC 34 % (32-36); MEAN CORPUSCULAR VOLUME 89 fL (79.0-98.0); MONOCYTES # (AUTO) 0.2 K/uL (0.0-1.0); MONOCYTES % (AUTO) 1.3 % (1.7-9.3); NEUTROPHILS # (AUTO) 15.4 K/uL (1.8-7.7); NEUTROPHILS % (AUTO) 92.4 % (40.0-70.0); PLATELET COUNT (AUTO) 175 K/uL (130-430); RED BLOOD CELL COUNT(AUTO) 3.95 MIL/uL (4.2-6.2); RED CELL DISTRIBUTION WIDTH 13.9 % (9.0-15.0); WHITE BLOOD COUNT (AUTO) 16.7 K/uL (4.8-10.8)
[2020-12-02 07:39] LABS: CALCIUM 8.2 mg/dL (8.4-11.0); POTASSIUM 4.5 mmol/L (3.5-5.1)
[2020-12-02] MEDS: CHOLECALCIFEROL (VITAMIN D3) 5,000 UNIT TABLET PO SCH (09:03)
[2020-12-02] MEDS: ASCORBIC ACID 500 MG TABLET PO SCH ×2 (09:03→20:24)
[2020-12-02] MEDS: ENOXAPARIN SODIUM 40 MG/0.4 ML SYRINGE SUBCUT SCH ×2 (09:31→20:27)
[2020-12-02] MEDS ORDERED: INSULIN GLARGINE 100 UNITS/ML 10 ML VIAL SUBCUT SCH (09:45)
[2020-12-02] MEDS: KCL 20 mEq in NS 1000 mL 1,000 ML IV SCH (18:04)
[2020-12-02] MEDS: FLUCONAZOLE 100 mg/ NS 50 ML IV SCH (20:23)
[2020-12-02] MEDS: DEXAMETHASONE SOD PHOSPHATE 10 MG/ML VIAL IVP SCH (20:24)
[2020-12-03] VITALS (28 sets, daily range): BP systolic 86–120
[2020-12-03] MEDS: PROPOFOL DRIP 100 ML IV PRN ×6 (01:24→20:37)
[2020-12-03 05:52] LABS: ALBUMIN 1.7 g/dL (3.4-4.8); CALCIUM 8.7 mg/dL (8.4-11.0); CREATININE 0.89 mg/dL (0.55-1.30); PHOSPHORUS 3.1 mg/dL (2.7-4.5); POTASSIUM 4.6 mmol/L (3.5-5.1); TOTAL BILIRUBIN 0.4 mg/dL (0.0-1.0)
[2020-12-03] MEDS: PIPERACILLIN/TAZO 4.5GM/DEX-IS 100 ML IV SCH (06:23)
[2020-12-03] MEDS: LEVOTHYROXINE SODIUM 0.1 MG TABLET PO SCH (06:24)
[2020-12-03] MEDS: KCL 20 mEq in NS 1000 mL 1,000 ML IV SCH (06:25)
[2020-12-03 06:47] LABS: BASOPHILS # (AUTO) 0.1 K/uL (0.0-0.2); BASOPHILS % (AUTO) 0.4 % (0.0-2.0); EOSINOPHILS # (AUTO) 0.1 K/uL (0.0-0.4); EOSINOPHILS % (AUTO) 0.6 % (0.0-4.0); HEMATOCRIT 34.2 % (36-48); HEMOGLOBIN 11.7 g/dL (12.0-16.0); LYMPHOCYTES # (AUTO) 0.7 K/uL (1.0-5.5); LYMPHOCYTES % (AUTO) 4.2 % (20.5-51.5); MEAN CORPUSCULAR HEMOGLOBIN 31 pg (27-31); MEAN CORPUSCULAR HGB CONC 34 % (32-36); MEAN CORPUSCULAR VOLUME 89 fL (79.0-98.0); MONOCYTES # (AUTO) 0.3 K/uL (0.0-1.0); MONOCYTES % (AUTO) 1.6 % (1.7-9.3); NEUTROPHILS # (AUTO) 15.6 K/uL (1.8-7.7); NEUTROPHILS % (AUTO) 93.2 % (40.0-70.0); PLATELET COUNT (AUTO) 221 K/uL (130-430); RED BLOOD CELL COUNT(AUTO) 3.85 MIL/uL (4.2-6.2); RED CELL DISTRIBUTION WIDTH 14.3 % (9.0-15.0); WHITE BLOOD COUNT (AUTO) 16.8 K/uL (4.8-10.8)
[2020-12-03] MEDS: CHOLECALCIFEROL (VITAMIN D3) 5,000 UNIT TABLET PO SCH (07:57)
[2020-12-03] MEDS: ASCORBIC ACID 500 MG TABLET PO SCH ×2 (09:00→20:46)
[2020-12-03] MEDS: ENOXAPARIN SODIUM 40 MG/0.4 ML SYRINGE SUBCUT SCH ×2 (09:00→20:46)
[2020-12-03] MEDS: metroNIDAZOLE 250 mg/NS 50 ML IV SCH ×2 (15:18→21:38)
[2020-12-03] MEDS ORDERED: LORazepam 2 MG/ML VIAL ONE ×2 (20:05→23:51)
[2020-12-03] MEDS: LORazepam 2 MG/ML VIAL IVP PRN (20:36)
[2020-12-03] MEDS: PANTOPRAZOLE SODIUM 40 MG/VIAL (PROTONIX) IVP SCH (20:46)
[2020-12-03] MEDS: DEXAMETHASONE SOD PHOSPHATE 10 MG/ML VIAL IVP SCH (20:46)
[2020-12-04] VITALS (26 sets, daily range): BP systolic 84–137
[2020-12-04] MEDS ORDERED: metroNIDAZOLE 500 mg/NS 100 ML IV ONE (00:03)
[2020-12-04] MEDS: PROPOFOL DRIP 100 ML IV PRN ×5 (03:48→21:42)
[2020-12-04] MEDS: LORazepam 2 MG/ML VIAL IVP PRN (03:49)
[2020-12-04] MEDS: metroNIDAZOLE 250 mg/NS 50 ML IV SCH ×3 (05:59→21:13)
[2020-12-04] MEDS: LEVOTHYROXINE SODIUM 0.1 MG TABLET PO SCH (06:28)
[2020-12-04 08:42] LABS: EOSINOPHILS # (AUTO) 0.1 K/uL (0.0-0.4); EOSINOPHILS % (AUTO) 0.5 % (0.0-4.0); HEMATOCRIT 33.9 % (36-48); HEMOGLOBIN 11.5 g/dL (12.0-16.0); LYMPHOCYTES # (AUTO) 1.2 K/uL (1.0-5.5); LYMPHOCYTES % (AUTO) 7.3 % (20.5-51.5); MEAN CORPUSCULAR HEMOGLOBIN 31 pg (27-31); MEAN CORPUSCULAR HGB CONC 34 % (32-36); MEAN CORPUSCULAR VOLUME 90 fL (79.0-98.0); MONOCYTES # (AUTO) 0.2 K/uL (0.0-1.0); MONOCYTES % (AUTO) 1.4 % (1.7-9.3); NEUTROPHILS # (AUTO) 15.4 K/uL (1.8-7.7); PLATELET COUNT (AUTO) 172 K/uL (130-430); RED BLOOD CELL COUNT(AUTO) 3.78 MIL/uL (4.2-6.2); RED CELL DISTRIBUTION WIDTH 14.5 % (9.0-15.0); WHITE BLOOD COUNT (AUTO) 16.9 K/uL (4.8-10.8)
[2020-12-04] MEDS: PANTOPRAZOLE SODIUM 40 MG/VIAL (PROTONIX) IVP SCH ×2 (09:40→20:02)
[2020-12-04] MEDS: ENOXAPARIN SODIUM 40 MG/0.4 ML SYRINGE SUBCUT SCH ×2 (09:41→19:57)
[2020-12-04] MEDS: CHOLECALCIFEROL (VITAMIN D3) 5,000 UNIT TABLET PO SCH (09:42)
[2020-12-04] MEDS: ASCORBIC ACID 500 MG TABLET PO SCH ×2 (09:42→20:02)
[2020-12-04 10:06] LABS: ALBUMIN 1.7 g/dL (3.4-4.8); CALCIUM 8.7 mg/dL (8.4-11.0); CREATININE 0.8 mg/dL (0.55-1.30); POTASSIUM 4.3 mmol/L (3.5-5.1); TOTAL BILIRUBIN 0.4 mg/dL (0.0-1.0)
[2020-12-04 12:28] LABS: NEUTROPHILS % (AUTO) 90.8 % (40.0-70.0)
[2020-12-04] MEDS: FLUCONAZOLE 100 mg/ NS 50 ML IV SCH (15:00)
[2020-12-04] MEDS: KCL 20 mEq in NS 1000 mL 1,000 ML IV SCH (17:35)
[2020-12-04] MEDS: DEXAMETHASONE SOD PHOSPHATE 10 MG/ML VIAL IVP SCH (19:52)
[2020-12-04] MEDS: LOPERAMIDE HCL 2 MG CAPSULE PO PRN (20:06)
[2020-12-05] VITALS (26 sets, daily range): BP systolic 97–134
[2020-12-05] MEDS: PROPOFOL DRIP 100 ML IV PRN ×3 (02:15→19:07)
[2020-12-05] MEDS: LEVOTHYROXINE SODIUM 0.1 MG TABLET PO SCH (06:18)
[2020-12-05] MEDS: metroNIDAZOLE 250 mg/NS 50 ML IV SCH ×3 (06:18→21:39)
[2020-12-05] MEDS: ASCORBIC ACID 500 MG TABLET PO SCH ×2 (08:05→21:39)
[2020-12-05] MEDS: CHOLECALCIFEROL (VITAMIN D3) 5,000 UNIT TABLET PO SCH (08:05)
[2020-12-05] MEDS: PANTOPRAZOLE SODIUM 40 MG/VIAL (PROTONIX) IVP SCH ×2 (08:05→21:39)
[2020-12-05] MEDS: ENOXAPARIN SODIUM 40 MG/0.4 ML SYRINGE SUBCUT SCH ×2 (08:16→21:00)
[2020-12-05] MEDS: FLUCONAZOLE 100 mg/ NS 50 ML IV SCH (11:24)
[2020-12-05] MEDS: KCL 20 mEq in NS 1000 mL 1,000 ML IV SCH (17:23)
[2020-12-05] MEDS: DEXAMETHASONE SOD PHOSPHATE 10 MG/ML VIAL IVP SCH (20:00)
[2020-12-06] VITALS (29 sets, daily range): BP systolic 105–136
[2020-12-06 04:51] LABS: BASOPHILS # (AUTO) 0.1 K/uL (0.0-0.2); BASOPHILS % (AUTO) 0.4 % (0.0-2.0); EOSINOPHILS # (AUTO) 0.1 K/uL (0.0-0.4); EOSINOPHILS % (AUTO) 0.7 % (0.0-4.0); HEMATOCRIT 33.9 % (36-48); HEMOGLOBIN 11.3 g/dL (12.0-16.0); LYMPHOCYTES # (AUTO) 0.6 K/uL (1.0-5.5); LYMPHOCYTES % (AUTO) 3.9 % (20.5-51.5); MEAN CORPUSCULAR HEMOGLOBIN 30 pg (27-31); MEAN CORPUSCULAR HGB CONC 33 % (32-36); MEAN CORPUSCULAR VOLUME 90 fL (79.0-98.0); MONOCYTES # (AUTO) 0.3 K/uL (0.0-1.0); MONOCYTES % (AUTO) 1.8 % (1.7-9.3); NEUTROPHILS % (AUTO) 93.2 % (40.0-70.0); PLATELET COUNT (AUTO) 178 K/uL (130-430); RED BLOOD CELL COUNT(AUTO) 3.77 MIL/uL (4.2-6.2); RED CELL DISTRIBUTION WIDTH 14.7 % (9.0-15.0)
[2020-12-06 05:13] LABS: ALBUMIN 1.8 g/dL (3.4-4.8); CREATININE 0.85 mg/dL (0.55-1.30); POTASSIUM 4.4 mmol/L (3.5-5.1); TOTAL BILIRUBIN 0.3 mg/dL (0.0-1.0)
[2020-12-06] MEDS: metroNIDAZOLE 250 mg/NS 50 ML IV SCH ×3 (06:52→20:11)
[2020-12-06] MEDS: LEVOTHYROXINE SODIUM 0.1 MG TABLET PO SCH (06:53)
[2020-12-06] MEDS: ENOXAPARIN SODIUM 40 MG/0.4 ML SYRINGE SUBCUT SCH ×2 (08:47→20:07)
[2020-12-06] MEDS: ASCORBIC ACID 500 MG TABLET PO SCH ×2 (08:47→20:09)
[2020-12-06] MEDS: PANTOPRAZOLE SODIUM 40 MG/VIAL (PROTONIX) IVP SCH ×2 (08:47→20:05)
[2020-12-06] MEDS: CHOLECALCIFEROL (VITAMIN D3) 5,000 UNIT TABLET PO SCH (08:47)
[2020-12-06] MEDS: FLUCONAZOLE 100 mg/ NS 50 ML IV SCH (10:28)
[2020-12-06] MEDS: KCL 20 mEq in NS 1000 mL 1,000 ML IV SCH (17:38)
[2020-12-06] MEDS: DEXAMETHASONE SOD PHOSPHATE 10 MG/ML VIAL IVP SCH (19:57)
[2020-12-07] VITALS (30 sets, daily range): BP systolic 84–151
[2020-12-07] MEDS ORDERED: LORazepam 2 MG/ML VIAL ONE ×2 (05:31→23:05)
[2020-12-07] MEDS: metroNIDAZOLE 250 mg/NS 50 ML IV SCH ×3 (05:53→21:04)
[2020-12-07] MEDS: PROPOFOL DRIP 100 ML IV PRN ×4 (06:19→21:20)
[2020-12-07] MEDS: LEVOTHYROXINE SODIUM 0.1 MG TABLET PO SCH (07:53)
[2020-12-07] MEDS: ASCORBIC ACID 500 MG TABLET PO SCH ×2 (08:05→21:02)
[2020-12-07] MEDS: CHOLECALCIFEROL (VITAMIN D3) 5,000 UNIT TABLET PO SCH (08:05)
[2020-12-07] MEDS: PANTOPRAZOLE SODIUM 40 MG/VIAL (PROTONIX) IVP SCH ×2 (08:05→21:01)
[2020-12-07] MEDS: ENOXAPARIN SODIUM 40 MG/0.4 ML SYRINGE SUBCUT SCH ×2 (08:06→21:04)
[2020-12-07 10:12] LABS: BASOPHILS # (AUTO) 0.1 K/uL (0.0-0.2); BASOPHILS % (AUTO) 0.4 % (0.0-2.0); EOSINOPHILS # (AUTO) 0.1 K/uL (0.0-0.4); EOSINOPHILS % (AUTO) 0.5 % (0.0-4.0); HEMATOCRIT 34.7 % (36-48); HEMOGLOBIN 11.6 g/dL (12.0-16.0); LYMPHOCYTES # (AUTO) 1.3 K/uL (1.0-5.5); LYMPHOCYTES % (AUTO) 6.8 % (20.5-51.5); MEAN CORPUSCULAR HEMOGLOBIN 30 pg (27-31); MEAN CORPUSCULAR HGB CONC 33 % (32-36); MEAN CORPUSCULAR VOLUME 89 fL (79.0-98.0); MONOCYTES # (AUTO) 0.8 K/uL (0.0-1.0); MONOCYTES % (AUTO) 3.9 % (1.7-9.3); NEUTROPHILS # (AUTO) 17.1 K/uL (1.8-7.7); NEUTROPHILS % (AUTO) 88.4 % (40.0-70.0); PLATELET COUNT (AUTO) 178 K/uL (130-430); RED BLOOD CELL COUNT(AUTO) 3.88 MIL/uL (4.2-6.2); RED CELL DISTRIBUTION WIDTH 14.5 % (9.0-15.0); WHITE BLOOD COUNT (AUTO) 19.3 K/uL (4.8-10.8)
[2020-12-07 10:19] LABS: CALCIUM 8.7 mg/dL (8.4-11.0); CREATININE 0.76 mg/dL (0.55-1.30); POTASSIUM 3.7 mmol/L (3.5-5.1)
[2020-12-07] MEDS: FLUCONAZOLE 100 mg/ NS 50 ML IV SCH (11:49)
[2020-12-07] MEDS: KCL 20 mEq in NS 1000 mL 1,000 ML IV SCH (17:36)
[2020-12-07] MEDS: DEXAMETHASONE SOD PHOSPHATE 10 MG/ML VIAL IVP SCH (19:55)
[2020-12-07] MEDS: LOPERAMIDE HCL 2 MG CAPSULE PO PRN (21:05)
[2020-12-08] VITALS (27 sets, daily range): BP systolic 79–146
[2020-12-08] MEDS: PROPOFOL DRIP 100 ML IV PRN ×2 (03:31→13:44)
[2020-12-08 05:34] LABS: ALBUMIN 1.8 g/dL (3.4-4.8); CALCIUM 8.4 mg/dL (8.4-11.0); CREATININE 0.74 mg/dL (0.55-1.30); POTASSIUM 4.3 mmol/L (3.5-5.1); TOTAL BILIRUBIN 0.3 mg/dL (0.0-1.0)
[2020-12-08 05:49] LABS: BASOPHILS # (AUTO) 0.1 K/uL (0.0-0.2); BASOPHILS % (AUTO) 0.8 % (0.0-2.0); EOSINOPHILS # (AUTO) 0.1 K/uL (0.0-0.4); EOSINOPHILS % (AUTO) 0.5 % (0.0-4.0); HEMATOCRIT 31.5 % (36-48); HEMOGLOBIN 10.4 g/dL (12.0-16.0); LYMPHOCYTES # (AUTO) 0.7 K/uL (1.0-5.5); LYMPHOCYTES % (AUTO) 4.8 % (20.5-51.5); MEAN CORPUSCULAR HEMOGLOBIN 30 pg (27-31); MEAN CORPUSCULAR HGB CONC 33 % (32-36); MEAN CORPUSCULAR VOLUME 90 fL (79.0-98.0); MONOCYTES # (AUTO) 0.2 K/uL (0.0-1.0); MONOCYTES % (AUTO) 1.5 % (1.7-9.3); NEUTROPHILS # (AUTO) 14.1 K/uL (1.8-7.7); NEUTROPHILS % (AUTO) 92.4 % (40.0-70.0); PLATELET COUNT (AUTO) 162 K/uL (130-430); RED CELL DISTRIBUTION WIDTH 14.9 % (9.0-15.0); WHITE BLOOD COUNT (AUTO) 15.2 K/uL (4.8-10.8)
[2020-12-08] MEDS: metroNIDAZOLE 250 mg/NS 50 ML IV SCH ×3 (07:03→22:55)
[2020-12-08] MEDS: LEVOTHYROXINE SODIUM 0.1 MG TABLET PO SCH (07:05)
[2020-12-08] MEDS: CHOLECALCIFEROL (VITAMIN D3) 5,000 UNIT TABLET PO SCH (08:34)
[2020-12-08] MEDS: PANTOPRAZOLE SODIUM 40 MG/VIAL (PROTONIX) IVP SCH ×2 (08:34→20:24)
[2020-12-08] MEDS: ASCORBIC ACID 500 MG TABLET PO SCH ×2 (08:34→20:21)
[2020-12-08] MEDS: ENOXAPARIN SODIUM 40 MG/0.4 ML SYRINGE SUBCUT SCH ×2 (09:15→21:00)
[2020-12-08] MEDS: ALBUMIN HUMAN 25% 50 ML IV SCH ×3 (09:30→20:22)
[2020-12-08] MEDS ORDERED: LORazepam 2 MG/ML VIAL ONE ×2 (10:11→17:48)
[2020-12-08] MEDS: LORazepam 2 MG/ML VIAL IVP PRN ×2 (10:53→18:01)
[2020-12-08] MEDS: FLUCONAZOLE 100 mg/ NS 50 ML IV SCH (11:48)
[2020-12-08] MEDS: KCL 20 mEq in NS 1000 mL 1,000 ML IV SCH (17:23)
[2020-12-08] MEDS: DEXAMETHASONE SOD PHOSPHATE 10 MG/ML VIAL IVP SCH (20:20)
[2020-12-08] MEDS: LOPERAMIDE HCL 2 MG CAPSULE PO PRN (20:24)
[2020-12-09] VITALS (29 sets, daily range): BP systolic 114–156
[2020-12-09] MEDS ORDERED: LORazepam 2 MG/ML VIAL ONE (00:20)
[2020-12-09] MEDS: PROPOFOL DRIP 100 ML IV PRN ×3 (00:45→21:46)
[2020-12-09] MEDS: LORazepam 2 MG/ML VIAL IVP PRN (00:47)
[2020-12-09] MEDS: ALBUTEROL MDI INHALATION 8 GM INH INH PRN (01:50)
[2020-12-09] MEDS: LEVOTHYROXINE SODIUM 0.1 MG TABLET PO SCH (06:23)
[2020-12-09] MEDS: metroNIDAZOLE 250 mg/NS 50 ML IV SCH ×3 (06:23→22:00)
[2020-12-09] MEDS: ASCORBIC ACID 500 MG TABLET PO SCH ×2 (09:03→21:47)
[2020-12-09] MEDS: PANTOPRAZOLE SODIUM 40 MG/VIAL (PROTONIX) IVP SCH ×2 (09:03→21:47)
[2020-12-09] MEDS: ENOXAPARIN SODIUM 40 MG/0.4 ML SYRINGE SUBCUT SCH ×2 (09:36→21:48)
[2020-12-09] MEDS: CHOLECALCIFEROL (VITAMIN D3) 5,000 UNIT TABLET PO SCH (10:23)
[2020-12-09] MEDS: FLUCONAZOLE 100 mg/ NS 50 ML IV SCH (10:25)
[2020-12-09] MEDS: KCL 20 mEq in NS 1000 mL 1,000 ML IV SCH (17:23)
[2020-12-09] MEDS: DEXAMETHASONE SOD PHOSPHATE 10 MG/ML VIAL IVP SCH (20:00)
[2020-12-10] VITALS (26 sets, daily range): BP systolic 118–157
[2020-12-10 05:15] LABS: BASOPHILS # (AUTO) 0.1 K/uL (0.0-0.2); BASOPHILS % (AUTO) 0.4 % (0.0-2.0); EOSINOPHILS % (AUTO) 0.3 % (0.0-4.0); HEMATOCRIT 32.7 % (36-48); HEMOGLOBIN 10.8 g/dL (12.0-16.0); LYMPHOCYTES # (AUTO) 0.6 K/uL (1.0-5.5); LYMPHOCYTES % (AUTO) 4.1 % (20.5-51.5); MEAN CORPUSCULAR HEMOGLOBIN 30 pg (27-31); MEAN CORPUSCULAR HGB CONC 33 % (32-36); MEAN CORPUSCULAR VOLUME 89 fL (79.0-98.0); MONOCYTES # (AUTO) 0.4 K/uL (0.0-1.0); MONOCYTES % (AUTO) 2.5 % (1.7-9.3); NEUTROPHILS # (AUTO) 14.6 K/uL (1.8-7.7); NEUTROPHILS % (AUTO) 92.7 % (40.0-70.0); PLATELET COUNT (AUTO) 169 K/uL (130-430); RED BLOOD CELL COUNT(AUTO) 3.66 MIL/uL (4.2-6.2); RED CELL DISTRIBUTION WIDTH 15.2 % (9.0-15.0); WHITE BLOOD COUNT (AUTO) 15.8 K/uL (4.8-10.8)
[2020-12-10 05:34] LABS: ALBUMIN 2.4 g/dL (3.4-4.8); CALCIUM 9.2 mg/dL (8.4-11.0); CREATININE 0.76 mg/dL (0.55-1.30); PHOSPHORUS 2.7 mg/dL (2.7-4.5); POTASSIUM 4.1 mmol/L (3.5-5.1); TOTAL BILIRUBIN 0.4 mg/dL (0.0-1.0)
[2020-12-10] MEDS: metroNIDAZOLE 250 mg/NS 50 ML IV SCH ×3 (06:30→20:22)
[2020-12-10] MEDS: PROPOFOL DRIP 100 ML IV PRN ×2 (06:31→21:58)
[2020-12-10] MEDS: LEVOTHYROXINE SODIUM 0.1 MG TABLET PO SCH (07:00)
[2020-12-10] MEDS: PANTOPRAZOLE SODIUM 40 MG/VIAL (PROTONIX) IVP SCH ×2 (09:53→20:20)
[2020-12-10] MEDS: CHOLECALCIFEROL (VITAMIN D3) 5,000 UNIT TABLET PO SCH (09:54)
[2020-12-10] MEDS: ASCORBIC ACID 500 MG TABLET PO SCH ×2 (09:54→20:20)
[2020-12-10] MEDS: ENOXAPARIN SODIUM 40 MG/0.4 ML SYRINGE SUBCUT SCH ×2 (09:54→20:21)
[2020-12-10] MEDS: FLUCONAZOLE 100 mg/ NS 50 ML IV SCH (11:54)
[2020-12-10] MEDS: DEXAMETHASONE SOD PHOSPHATE 10 MG/ML VIAL IVP SCH (20:20)
[2020-12-10] MEDS ORDERED: SULFAMETHOXAZOLE /TRIMETHOPRIM 10 ML in D5W 250 ML IV SCH (22:00)
[2020-12-11] VITALS (27 sets, daily range): BP systolic 98–140
[2020-12-11] MEDS: PROPOFOL DRIP 100 ML IV PRN ×4 (02:06→17:57)
[2020-12-11] MEDS: KCL 20 mEq in NS 1000 mL 1,000 ML IV SCH (06:38)
[2020-12-11] MEDS: metroNIDAZOLE 250 mg/NS 50 ML IV SCH ×3 (06:39→22:07)
[2020-12-11] MEDS: ASCORBIC ACID 500 MG TABLET PO SCH ×2 (08:04→22:06)
[2020-12-11] MEDS: PANTOPRAZOLE SODIUM 40 MG/VIAL (PROTONIX) IVP SCH ×2 (08:04→22:06)
[2020-12-11] MEDS: LEVOTHYROXINE SODIUM 0.1 MG TABLET PO SCH (08:04)
[2020-12-11] MEDS: CHOLECALCIFEROL (VITAMIN D3) 5,000 UNIT TABLET PO SCH (08:04)
[2020-12-11] MEDS: ENOXAPARIN SODIUM 40 MG/0.4 ML SYRINGE SUBCUT SCH ×2 (08:33→22:07)
[2020-12-11] MEDS ORDERED: LORazepam 2 MG/ML VIAL ONE ×2 (11:15→23:35)
[2020-12-11] MEDS: LORazepam 2 MG/ML VIAL IVP PRN ×2 (11:35→17:26)
[2020-12-11] MEDS: SULFAMETHOXAZOLE /TRIMETHOPRIM 10 ML in D5W 250 ML IV SCH ×2 (14:40→22:07)
[2020-12-11] MEDS: DEXAMETHASONE SOD PHOSPHATE 10 MG/ML VIAL IVP SCH (20:00)
[2020-12-12] VITALS (28 sets, daily range): BP systolic 85–136
[2020-12-12] MEDS: PROPOFOL DRIP 100 ML IV PRN ×5 (00:18→17:30)
[2020-12-12 05:10] LABS: BASOPHILS # (AUTO) 0.1 K/uL (0.0-0.2); BASOPHILS % (AUTO) 0.9 % (0.0-2.0); EOSINOPHILS # (AUTO) 0.2 K/uL (0.0-0.4); EOSINOPHILS % (AUTO) 2.1 % (0.0-4.0); HEMATOCRIT 31.2 % (36-48); HEMOGLOBIN 10.7 g/dL (12.0-16.0); LYMPHOCYTES # (AUTO) 0.7 K/uL (1.0-5.5); MEAN CORPUSCULAR HEMOGLOBIN 31 pg (27-31); MEAN CORPUSCULAR HGB CONC 34 % (32-36); MEAN CORPUSCULAR VOLUME 90 fL (79.0-98.0); MONOCYTES # (AUTO) 0.1 K/uL (0.0-1.0); MONOCYTES % (AUTO) 1.3 % (1.7-9.3); NEUTROPHILS # (AUTO) 9.9 K/uL (1.8-7.7); NEUTROPHILS % (AUTO) 89.7 % (40.0-70.0); PLATELET COUNT (AUTO) 171 K/uL (130-430); RED BLOOD CELL COUNT(AUTO) 3.48 MIL/uL (4.2-6.2); RED CELL DISTRIBUTION WIDTH 15.4 % (9.0-15.0)
[2020-12-12] MEDS: SULFAMETHOXAZOLE /TRIMETHOPRIM 10 ML in D5W 250 ML IV SCH ×3 (06:28→22:00)
[2020-12-12] MEDS: metroNIDAZOLE 250 mg/NS 50 ML IV SCH ×3 (06:28→22:00)
[2020-12-12] MEDS: LEVOTHYROXINE SODIUM 0.1 MG TABLET PO SCH (06:29)
[2020-12-12] MEDS: ASCORBIC ACID 500 MG TABLET PO SCH ×2 (09:00→21:00)
[2020-12-12] MEDS: PANTOPRAZOLE SODIUM 40 MG/VIAL (PROTONIX) IVP SCH ×2 (09:00→21:00)
[2020-12-12] MEDS: CHOLECALCIFEROL (VITAMIN D3) 5,000 UNIT TABLET PO SCH (09:00)
[2020-12-12] MEDS: ENOXAPARIN SODIUM 40 MG/0.4 ML SYRINGE SUBCUT SCH ×2 (09:00→21:00)
[2020-12-12] MEDS: KCL 20 mEq in NS 1000 mL 1,000 ML IV SCH (17:23)
[2020-12-12] MEDS: DEXAMETHASONE SOD PHOSPHATE 10 MG/ML VIAL IVP SCH (20:00)
[2020-12-12] MEDS: ALBUTEROL MDI INHALATION 8 GM INH INH PRN (21:40)
[2020-12-13] VITALS (28 sets, daily range): BP systolic 82–141
[2020-12-13] MEDS ORDERED: LORazepam 2 MG/ML VIAL ONE ×3 (00:30→18:56)
[2020-12-13] MEDS: SULFAMETHOXAZOLE /TRIMETHOPRIM 10 ML in D5W 250 ML IV SCH ×3 (06:00→22:00)
[2020-12-13] MEDS: metroNIDAZOLE 250 mg/NS 50 ML IV SCH ×3 (06:00→22:04)
[2020-12-13] MEDS: LEVOTHYROXINE SODIUM 0.1 MG TABLET PO SCH (07:00)
[2020-12-13] MEDS: PROPOFOL DRIP 100 ML IV PRN ×9 (07:14→15:30)
[2020-12-13] MEDS: LORazepam 2 MG/ML VIAL IVP PRN ×4 (07:41→19:01)
[2020-12-13] MEDS: PANTOPRAZOLE SODIUM 40 MG/VIAL (PROTONIX) IVP SCH ×2 (09:30→21:51)
[2020-12-13] MEDS: ASCORBIC ACID 500 MG TABLET PO SCH ×2 (09:30→21:51)
[2020-12-13] MEDS: CHOLECALCIFEROL (VITAMIN D3) 5,000 UNIT TABLET PO SCH (09:32)
[2020-12-13] MEDS: ENOXAPARIN SODIUM 40 MG/0.4 ML SYRINGE SUBCUT SCH ×2 (09:34→22:02)
[2020-12-13] MEDS: ALBUTEROL MDI INHALATION 8 GM INH INH PRN (12:41)
[2020-12-13] MEDS: KCL 20 mEq in NS 1000 mL 1,000 ML IV SCH (17:11)
[2020-12-13] MEDS ORDERED: MIDAZOLAM HCL 2 MG/2 ML VIAL (VERSED) ONE (18:56)
[2020-12-13] MEDS: DEXAMETHASONE SOD PHOSPHATE 10 MG/ML VIAL IVP SCH (20:00)
[2020-12-13] MEDS ORDERED: MORPHINE 2 MG/ML INJ. SYRINGE IVP PRN (21:15)
[2020-12-13] MEDS ORDERED: DEXMEDETOMIDINE HCL 400 MCG in NS 96 ML IV PRN (21:15)
[2020-12-14] VITALS (31 sets, daily range): BP systolic 87–121
[2020-12-14] MEDS ORDERED: KETAMINE 30 MG/3 ML SYRINGE ONE (00:43)
[2020-12-14] MEDS ORDERED: SUCCINYLCHOLINE CHLORIDE 20 MG/ML(QUELICIN) IVP ONE ×2 (01:00→08:51)
[2020-12-14] MEDS ORDERED: KETAMINE 30 MG/3 ML SYRINGE IVP ONE (01:00)
[2020-12-14] MEDS: metroNIDAZOLE 250 mg/NS 50 ML IV SCH ×3 (06:00→22:00)
[2020-12-14] MEDS: SULFAMETHOXAZOLE /TRIMETHOPRIM 10 ML in D5W 250 ML IV SCH ×3 (06:00→22:00)
[2020-12-14] MEDS: LEVOTHYROXINE SODIUM 0.1 MG TABLET PO SCH (07:36)
[2020-12-14] MEDS: PROPOFOL DRIP 100 ML IV PRN ×3 (07:56→21:00)
[2020-12-14] MEDS: PANTOPRAZOLE SODIUM 40 MG/VIAL (PROTONIX) IVP SCH ×2 (09:52→20:15)
[2020-12-14] MEDS: ASCORBIC ACID 500 MG TABLET PO SCH ×2 (09:52→20:16)
[2020-12-14] MEDS: CHOLECALCIFEROL (VITAMIN D3) 5,000 UNIT TABLET PO SCH (09:52)
[2020-12-14] MEDS: ENOXAPARIN SODIUM 40 MG/0.4 ML SYRINGE SUBCUT SCH ×2 (09:53→20:17)
[2020-12-14 12:50] LABS: ALBUMIN 2.1 g/dL (3.4-4.8); CALCIUM 9.2 mg/dL (8.4-11.0); CREATININE 0.68 mg/dL (0.55-1.30); POTASSIUM 3.6 mmol/L (3.5-5.1); TOTAL BILIRUBIN 0.3 mg/dL (0.0-1.0)
[2020-12-14 13:01] LABS: BASOPHILS # (AUTO) 0.1 K/uL (0.0-0.2); BASOPHILS % (AUTO) 0.7 % (0.0-2.0); EOSINOPHILS # (AUTO) 0.3 K/uL (0.0-0.4); HEMATOCRIT 32.8 % (36-48); HEMOGLOBIN 10.9 g/dL (12.0-16.0); LYMPHOCYTES # (AUTO) 1.5 K/uL (1.0-5.5); LYMPHOCYTES % (AUTO) 11.2 % (20.5-51.5); MEAN CORPUSCULAR HEMOGLOBIN 30 pg (27-31); MEAN CORPUSCULAR HGB CONC 33 % (32-36); MEAN CORPUSCULAR VOLUME 89 fL (79.0-98.0); MONOCYTES # (AUTO) 0.5 K/uL (0.0-1.0); MONOCYTES % (AUTO) 3.7 % (1.7-9.3); NEUTROPHILS # (AUTO) 11.2 K/uL (1.8-7.7); NEUTROPHILS % (AUTO) 82.4 % (40.0-70.0); PLATELET COUNT (AUTO) 177 K/uL (130-430); RED BLOOD CELL COUNT(AUTO) 3.69 MIL/uL (4.2-6.2); RED CELL DISTRIBUTION WIDTH 15.2 % (9.0-15.0); WHITE BLOOD COUNT (AUTO) 13.6 K/uL (4.8-10.8)
[2020-12-14] MEDS ORDERED: SODIUM BICARBONATE 8.4% JECT 50 MEQ/50 ML SYRINGE IVP ONE (13:30)
[2020-12-14] MEDS ORDERED: POTASSIUM CHLORIDE 20 MEQ/PKT PACKET PO ONE (13:30)
[2020-12-14] MEDS: KCL 20 mEq in NS 1000 mL 1,000 ML IV SCH (17:41)
[2020-12-14] MEDS: NAPH,MB-DB/K PH,MBDB 250 MG TAB PO SCH (20:16)
[2020-12-14] MEDS: DEXAMETHASONE SOD PHOSPHATE 10 MG/ML VIAL IVP SCH (20:25)
[2020-12-14] MEDS ORDERED: LORazepam 2 MG/ML VIAL ONE (20:46)
[2020-12-15] VITALS (27 sets, daily range): BP systolic 91–136
[2020-12-15 05:21] LABS: BASOPHILS # (AUTO) 0.1 K/uL (0.0-0.2); BASOPHILS % (AUTO) 0.8 % (0.0-2.0); CREATININE 0.87 mg/dL (0.55-1.30); EOSINOPHILS % (AUTO) 0.3 % (0.0-4.0); HEMATOCRIT 31.7 % (36-48); HEMOGLOBIN 10.7 g/dL (12.0-16.0); LYMPHOCYTES # (AUTO) 0.8 K/uL (1.0-5.5); LYMPHOCYTES % (AUTO) 7.3 % (20.5-51.5); MEAN CORPUSCULAR HEMOGLOBIN 30 pg (27-31); MEAN CORPUSCULAR HGB CONC 34 % (32-36); MEAN CORPUSCULAR VOLUME 90 fL (79.0-98.0); MONOCYTES # (AUTO) 0.2 K/uL (0.0-1.0); MONOCYTES % (AUTO) 1.6 % (1.7-9.3); NEUTROPHILS # (AUTO) 10.4 K/uL (1.8-7.7); PHOSPHORUS 2.4 mg/dL (2.7-4.5); PLATELET COUNT (AUTO) 168 K/uL (130-430); POTASSIUM 4.7 mmol/L (3.5-5.1); RED BLOOD CELL COUNT(AUTO) 3.54 MIL/uL (4.2-6.2); RED CELL DISTRIBUTION WIDTH 15.6 % (9.0-15.0); TOTAL BILIRUBIN 0.2 mg/dL (0.0-1.0); WHITE BLOOD COUNT (AUTO) 11.6 K/uL (4.8-10.8)
[2020-12-15] MEDS: SULFAMETHOXAZOLE /TRIMETHOPRIM 10 ML in D5W 250 ML IV SCH ×3 (06:00→22:00)
[2020-12-15] MEDS: metroNIDAZOLE 250 mg/NS 50 ML IV SCH ×3 (06:00→22:00)
[2020-12-15] MEDS: LEVOTHYROXINE SODIUM 0.1 MG TABLET PO SCH (07:39)
[2020-12-15] MEDS: PANTOPRAZOLE SODIUM 40 MG/VIAL (PROTONIX) IVP SCH ×2 (08:59→20:25)
[2020-12-15] MEDS: NAPH,MB-DB/K PH,MBDB 250 MG TAB PO SCH ×2 (08:59→20:25)
[2020-12-15] MEDS: ASCORBIC ACID 500 MG TABLET PO SCH ×2 (09:00→20:25)
[2020-12-15] MEDS: CHOLECALCIFEROL (VITAMIN D3) 5,000 UNIT TABLET PO SCH (09:00)
[2020-12-15] MEDS: ENOXAPARIN SODIUM 40 MG/0.4 ML SYRINGE SUBCUT SCH ×2 (09:01→20:26)
[2020-12-15] MEDS: PROPOFOL DRIP 100 ML IV PRN ×3 (09:01→21:00)
[2020-12-15] MEDS: KCL 20 mEq in NS 1000 mL 1,000 ML IV SCH (17:30)
[2020-12-15] MEDS: DEXAMETHASONE SOD PHOSPHATE 10 MG/ML VIAL IVP SCH (20:00)
[2020-12-15] MEDS ORDERED: LORazepam 2 MG/ML VIAL ONE (23:34)
[2020-12-16] VITALS (29 sets, daily range): BP systolic 88–138
[2020-12-16] MEDS: PROPOFOL DRIP 100 ML IV PRN ×6 (00:46→23:08)
[2020-12-16] MEDS ORDERED: LORazepam 2 MG/ML VIAL ONE (01:43)
[2020-12-16] MEDS: SULFAMETHOXAZOLE /TRIMETHOPRIM 10 ML in D5W 250 ML IV SCH ×3 (05:02→23:03)
[2020-12-16] MEDS: LORazepam 2 MG/ML VIAL IVP PRN ×2 (06:00)
[2020-12-16] MEDS: LEVOTHYROXINE SODIUM 0.1 MG TABLET PO SCH (08:03)
[2020-12-16] MEDS: CHOLECALCIFEROL (VITAMIN D3) 5,000 UNIT TABLET PO SCH (08:21)
[2020-12-16] MEDS: PANTOPRAZOLE SODIUM 40 MG/VIAL (PROTONIX) IVP SCH ×2 (08:21→23:01)
[2020-12-16] MEDS: NAPH,MB-DB/K PH,MBDB 250 MG TAB PO SCH (08:21)
[2020-12-16] MEDS: ENOXAPARIN SODIUM 40 MG/0.4 ML SYRINGE SUBCUT SCH ×2 (08:21→21:00)
[2020-12-16] MEDS: ASCORBIC ACID 500 MG TABLET PO SCH ×2 (08:21→23:01)
[2020-12-16 09:41] LABS: BASOPHILS # (AUTO) 0.2 K/uL (0.0-0.2); BASOPHILS % (AUTO) 0.8 % (0.0-2.0); EOSINOPHILS # (AUTO) 0.2 K/uL (0.0-0.4); EOSINOPHILS % (AUTO) 1.1 % (0.0-4.0); HEMATOCRIT 30.8 % (36-48); HEMOGLOBIN 10.6 g/dL (12.0-16.0); LYMPHOCYTES # (AUTO) 1.8 K/uL (1.0-5.5); LYMPHOCYTES % (AUTO) 9.6 % (20.5-51.5); MEAN CORPUSCULAR HEMOGLOBIN 30 pg (27-31); MEAN CORPUSCULAR HGB CONC 34 % (32-36); MEAN CORPUSCULAR VOLUME 88 fL (79.0-98.0); MONOCYTES # (AUTO) 0.5 K/uL (0.0-1.0); MONOCYTES % (AUTO) 2.9 % (1.7-9.3); NEUTROPHILS # (AUTO) 15.8 K/uL (1.8-7.7); PLATELET COUNT (AUTO) 186 K/uL (130-430); RED CELL DISTRIBUTION WIDTH 15.8 % (9.0-15.0); WHITE BLOOD COUNT (AUTO) 18.5 K/uL (4.8-10.8)
[2020-12-16 09:50] LABS: CALCIUM 9.1 mg/dL (8.4-11.0); CREATININE 0.74 mg/dL (0.55-1.30); INR 0.9 (0.8-1.2); POTASSIUM 3.9 mmol/L (3.5-5.1); PROTHROMBIN TIME 9.7 SECS (9.5-12.5); TOTAL BILIRUBIN 0.2 mg/dL (0.0-1.0)
[2020-12-16 11:10] LABS: NEUTROPHILS % (AUTO) 85.6 % (40.0-70.0)
[2020-12-16] MEDS: KCL 20 mEq in NS 1000 mL 1,000 ML IV SCH (16:55)
[2020-12-16] MEDS: DEXAMETHASONE SOD PHOSPHATE 10 MG/ML VIAL IVP SCH (23:00)
[2020-12-17] VITALS (27 sets, daily range): BP systolic 86–130
[2020-12-17] MEDS: PROPOFOL DRIP 100 ML IV PRN ×3 (02:33→16:13)
[2020-12-17] MEDS: LEVOTHYROXINE SODIUM 0.1 MG TABLET PO SCH (07:00)
[2020-12-17] MEDS: SULFAMETHOXAZOLE /TRIMETHOPRIM 10 ML in D5W 250 ML IV SCH ×3 (07:03→22:00)
[2020-12-17] MEDS: CHOLECALCIFEROL (VITAMIN D3) 5,000 UNIT TABLET PO SCH (08:48)
[2020-12-17] MEDS: PANTOPRAZOLE SODIUM 40 MG/VIAL (PROTONIX) IVP SCH ×2 (08:48→21:58)
[2020-12-17] MEDS: ASCORBIC ACID 500 MG TABLET PO SCH ×2 (08:48→21:59)
[2020-12-17] MEDS: ENOXAPARIN SODIUM 40 MG/0.4 ML SYRINGE SUBCUT SCH ×2 (08:49→21:59)
[2020-12-17] MEDS ORDERED: LORazepam 2 MG/ML VIAL ONE (12:52)
[2020-12-17] MEDS: metroNIDAZOLE 250 mg/NS 50 ML IV SCH ×2 (14:34→22:00)
[2020-12-17] MEDS: KCL 20 mEq in NS 1000 mL 1,000 ML IV SCH (16:20)
[2020-12-17] MEDS ORDERED: MIDAZOLAM IN NACL,ISO-OSMOT/PF 100 ML IV ONE (21:22)
[2020-12-17] MEDS: DEXAMETHASONE SOD PHOSPHATE 10 MG/ML VIAL IVP SCH (21:58)
[2020-12-17] MEDS: MIDAZOLAM IN NACL,ISO-OSMOT/PF 100 ML IV PRN (23:57)
[2020-12-17] MEDS: LORazepam 2 MG/ML VIAL IVP PRN (23:57)
[2020-12-18] VITALS (30 sets, daily range): BP systolic 85–174
[2020-12-18 04:46] LABS: BASOPHILS # (AUTO) 0.1 K/uL (0.0-0.2); EOSINOPHILS # (AUTO) 0.1 K/uL (0.0-0.4); EOSINOPHILS % (AUTO) 0.4 % (0.0-4.0); HEMATOCRIT 34.1 % (36-48); HEMOGLOBIN 11.6 g/dL (12.0-16.0); LYMPHOCYTES # (AUTO) 1.1 K/uL (1.0-5.5); LYMPHOCYTES % (AUTO) 8.7 % (20.5-51.5); MEAN CORPUSCULAR HEMOGLOBIN 30 pg (27-31); MEAN CORPUSCULAR HGB CONC 34 % (32-36); MEAN CORPUSCULAR VOLUME 88 fL (79.0-98.0); MONOCYTES # (AUTO) 0.3 K/uL (0.0-1.0); MONOCYTES % (AUTO) 2.1 % (1.7-9.3); NEUTROPHILS # (AUTO) 11.4 K/uL (1.8-7.7); NEUTROPHILS % (AUTO) 87.8 % (40.0-70.0); PLATELET COUNT (AUTO) 232 K/uL (130-430); RED BLOOD CELL COUNT(AUTO) 3.87 MIL/uL (4.2-6.2); RED CELL DISTRIBUTION WIDTH 15.5 % (9.0-15.0)
[2020-12-18] MEDS: SULFAMETHOXAZOLE /TRIMETHOPRIM 10 ML in D5W 250 ML IV SCH ×3 (06:00→22:42)
[2020-12-18] MEDS: metroNIDAZOLE 250 mg/NS 50 ML IV SCH ×3 (06:29→22:43)
[2020-12-18] MEDS: LEVOTHYROXINE SODIUM 0.1 MG TABLET PO SCH (06:29)
[2020-12-18] MEDS: CHOLECALCIFEROL (VITAMIN D3) 5,000 UNIT TABLET PO SCH (09:05)
[2020-12-18] MEDS: ASCORBIC ACID 500 MG TABLET PO SCH ×2 (09:05→22:41)
[2020-12-18] MEDS: PANTOPRAZOLE SODIUM 40 MG/VIAL (PROTONIX) IVP SCH ×2 (09:05→22:41)
[2020-12-18] MEDS: ENOXAPARIN SODIUM 40 MG/0.4 ML SYRINGE SUBCUT SCH ×2 (09:05→22:42)
[2020-12-18] MEDS: ALBUTEROL MDI INHALATION 8 GM INH INH PRN (10:15)
[2020-12-18] MEDS: LORazepam 2 MG/ML VIAL IVP PRN ×2 (11:06→22:41)
[2020-12-18] MEDS: KCL 20 mEq in NS 1000 mL 1,000 ML IV SCH (16:37)
[2020-12-18] MEDS ORDERED: MIDAZOLAM IN NACL,ISO-OSMOT/PF 100 ML IV ONE (21:20)
[2020-12-18] MEDS: MIDAZOLAM IN NACL,ISO-OSMOT/PF 100 ML IV PRN (22:40)
[2020-12-18] MEDS: DEXAMETHASONE SOD PHOSPHATE 10 MG/ML VIAL IVP SCH (22:41)
[2020-12-19] VITALS (29 sets, daily range): BP systolic 91–141
[2020-12-19] MEDS: LORazepam 2 MG/ML VIAL IVP PRN (03:03)
[2020-12-19] MEDS: metroNIDAZOLE 250 mg/NS 50 ML IV SCH ×3 (07:08→22:46)
[2020-12-19] MEDS: LEVOTHYROXINE SODIUM 0.1 MG TABLET PO SCH (07:08)
[2020-12-19] MEDS: PANTOPRAZOLE SODIUM 40 MG/VIAL (PROTONIX) IVP SCH ×2 (08:19→21:00)
[2020-12-19] MEDS: ENOXAPARIN SODIUM 40 MG/0.4 ML SYRINGE SUBCUT SCH ×2 (08:19→22:40)
[2020-12-19] MEDS: CHOLECALCIFEROL (VITAMIN D3) 5,000 UNIT TABLET PO SCH (08:19)
[2020-12-19 08:39] LABS: HEMATOCRIT 32.1 % (36-48); HEMOGLOBIN 10.7 g/dL (12.0-16.0); MEAN CORPUSCULAR HEMOGLOBIN 30 pg (27-31); MEAN CORPUSCULAR HGB CONC 33 % (32-36); MEAN CORPUSCULAR VOLUME 89 fL (79.0-98.0); PLATELET COUNT (AUTO) 240 K/uL (130-430); RED BLOOD CELL COUNT(AUTO) 3.63 MIL/uL (4.2-6.2); RED CELL DISTRIBUTION WIDTH 15.3 % (9.0-15.0); WHITE BLOOD COUNT (AUTO) 12.1 K/uL (4.8-10.8)
[2020-12-19 08:49] LABS: CALCIUM 9.3 mg/dL (8.4-11.0); CREATININE 0.64 mg/dL (0.55-1.30); POTASSIUM 3.9 mmol/L (3.5-5.1)
[2020-12-19] MEDS: ASCORBIC ACID 500 MG TABLET PO SCH ×2 (08:59→21:00)
[2020-12-19] MEDS: ALBUTEROL MDI INHALATION 8 GM INH INH PRN (10:25)
[2020-12-19 12:59] LABS: BAND % (MANUAL) 1 % (0-6); BASOPHILS % (MANUAL) 0 % (0-2); EOSINOPHILS % (MANUAL) 1 % (0-7); LYMPHOCYTES % (MANUAL) 10 % (20-46); METAMYELOCYTES % 1 % (0-0); MONOCYTES % (MANUAL) 2 % (0-11)
[2020-12-19] MEDS: KCL 20 mEq in NS 1000 mL 1,000 ML IV SCH (16:33)
[2020-12-19] MEDS: DEXAMETHASONE SOD PHOSPHATE 10 MG/ML VIAL IVP SCH (20:00)
[2020-12-20] VITALS (28 sets, daily range): BP systolic 98–194
[2020-12-20] MEDS ORDERED: LORazepam 2 MG/ML VIAL ONE ×2 (01:32→11:37)
[2020-12-20] MEDS: metroNIDAZOLE 250 mg/NS 50 ML IV SCH ×2 (06:00→13:00)
[2020-12-20] MEDS: LEVOTHYROXINE SODIUM 0.1 MG TABLET PO SCH (07:00)
[2020-12-20] MEDS: PANTOPRAZOLE SODIUM 40 MG/VIAL (PROTONIX) IVP SCH (09:05)
[2020-12-20] MEDS: CHOLECALCIFEROL (VITAMIN D3) 5,000 UNIT TABLET PO SCH (09:05)
[2020-12-20] MEDS: ENOXAPARIN SODIUM 40 MG/0.4 ML SYRINGE SUBCUT SCH (09:08)
[2020-12-20] MEDS: ASCORBIC ACID 500 MG TABLET PO SCH (09:28)
[2020-12-20] MEDS: LORazepam 2 MG/ML VIAL IVP PRN (11:30)
[2020-12-20] MEDS ORDERED: MORPHINE 2 MG/ML INJ. SYRINGE ONE (11:38)
[2020-12-20] MEDS: KCL 20 mEq in NS 1000 mL 1,000 ML IV SCH (17:23)
[2020-12-20] MEDS ORDERED: MIDAZOLAM IN NACL,ISO-OSMOT/PF 100 ML IV ONE (19:20)
[2020-12-20] MEDS ORDERED: hydrALAZINE HCL 20 MG/ML VIAL ONE (22:19)
[2020-12-20] MEDS ORDERED: EPINEPHrine JECT 0.1 MG/ML SYR ONE (22:56)
[2020-12-20] MEDS ORDERED: SODIUM BICARBONATE 8.4% JECT 50 MEQ/50 ML SYRINGE IVP ONE (22:59)
[2020-12-20] MEDS ORDERED: EPINEPHrine JECT 0.1 MG/ML SYR IVP ONE ×2 (22:59)
[2020-12-20] MEDS ORDERED: CALCIUM CHLORIDE 1 GM/10 ML DISP.SYRIN (14 mEq Ca++/SYR) IV ONE (22:59)
== END 2020-12-20 23:00 | disposition expired | DRG 4 ==
LOC: SED 11:48 → STU 14:25 → SIC 11-25 18:28
PROVIDERS: ADMIT Family Medicine; ATTEND Family Medicine
PROC: 5A09457 Assistance with Respiratory Ventilation, 24-96 Consecutive Hours, Continuous Positive Airway Pressure (ICD-10-PCS; 2020-11-22)
PROC: XW13325 Transfusion of Convalescent Plasma (Nonautologous) into Peripheral Vein, Percutaneous Approach, New Technology Group 5 (ICD-10-PCS; 2020-11-24)
PROC: 5A09357 Assistance with Respiratory Ventilation, Less than 24 Consecutive Hours, Continuous Positive Airway Pressure (ICD-10-PCS; 2020-11-24)
PROC: 5A1955Z Respiratory Ventilation, Greater than 96 Consecutive Hours (ICD-10-PCS; 2020-11-25)
PROC: 0BH17EZ Insertion of Endotracheal Airway into Trachea, Via Natural or Artificial Opening (ICD-10-PCS; 2020-11-25)
PROC: XW033E5 Introduction of Remdesivir Anti-infective into Peripheral Vein, Percutaneous Approach, New Technology Group 5 (ICD-10-PCS; 2020-11-26)
PROC: 0DH63UZ Insertion of Feeding Device into Stomach, Percutaneous Approach (ICD-10-PCS; 2020-12-16)
PROC: 0DB78ZX Excision of Stomach, Pylorus, Via Natural or Artificial Opening Endoscopic, Diagnostic (ICD-10-PCS; 2020-12-16)
PROC: 0B110F4 Bypass Trachea to Cutaneous with Tracheostomy Device, Open Approach (ICD-10-PCS; principal; 2020-12-16 13:26)
PROC: 4A00X4Z Measurement of Central Nervous Electrical Activity, External Approach (ICD-10-PCS; 2020-12-20)
DX: U07.1 COVID-19 (principal); J12.82 Pneumonia due to coronavirus disease 2019; J96.01 Acute respiratory failure with hypoxia; G93.49 Other encephalopathy; Z99.11 Dependence on respirator [ventilator] status; E03.9 Hypothyroidism, unspecified; F41.9 Anxiety disorder, unspecified; E66.9 Obesity, unspecified; I49.9 Cardiac arrhythmia, unspecified; D72.810 Lymphocytopenia; I49.3 Ventricular premature depolarization; Z68.28 Body mass index [BMI] 28.0-28.9, adult; Z79.890 Hormone replacement therapy; Z79.899 Other long term (current) drug therapy; Z91.19 Patient's noncompliance with other medical treatment and regimen
CPT/HCPCS: 36415; 36600; 70450-TC; 71045; 76376; 80048; 80053; 80076; 82550-TC; 82728; 82803-TC; 83605; 83615-TC; 83735-TC; 83880; 84100-TC; 84443-TC; 84484; 85007; 85025; 85027; 85379; 85384-TC; 85610-TC; 85730-TC; 86140; 86886; 86900; 86901; 87040-TC; 87070-TC; 87205-TC; 87230-TC; 88305; 88312; 88313; 92950; 93005; 94002; 94003; 94640; 94660; 94760; 95816; 96361; 96365; 96367; 96375; 99291; 99292; C1751; C9113; G0378; J0171; J0330; J0360; J0456; J0696; J1100; J1450; J1650; J2060; J2270; J2405; J2543; J2704; J3370; J3465; J3480; J3490; J7040; J7050; J7060; J7120; P9017; P9046